=== PATIENT | female | born 1995 | race Hispanic/Latino ===

== ENCOUNTER 2017-02-03 08:58 | Emergency (ER) | payer SELFPAY ==
[~2017-02-03] VITALS: Ht 154.9 cm; Wt 79.0 kg
[~2017-02-03 08:58] MED LIST: ACCOLATE10 MG; CALNA OR; NO HOME MEDS; ULTRAM50 M1 PO
[2017-02-03] MEDS ORDERED: CIPROFLOXACN750 MG PO (09:22)
[2017-02-03] MEDS ORDERED: MOTRIN800 MG PO (09:22)
[2017-02-03] MEDS ORDERED: CORTISPORIN OTI10 M2 AU (09:22)
[2017-02-03 10:05] VITALS: BP 123/81
== END 2017-02-03 10:05 | disposition home or self-care (01) | DRG 156 ==
LOC: ED 08:58
DX: H60.93 Unspecified otitis externa, bilateral (principal); J45.909 Unspecified asthma, uncomplicated

== ENCOUNTER 2018-11-08 15:36 | Emergency (ER) | payer OTHER ==
[~2018-11-08] VITALS: Ht 154.9 cm; Wt 75.0 kg
[~2018-11-08 15:36] MED LIST changes: +CIPROFLOXACN750 MG PO; +CORTISPORIN OTI10 M2 AU; +MOTRIN800 MG PO
[2018-11-08] MEDS ORDERED: PROVENTIL HFA IN (16:06)
[2018-11-08] MEDS ORDERED: ZITHROMAX500 MG PO (16:14)
[2018-11-08] MEDS ORDERED: TESSALON PERLE100 MG PO (16:14)
[2018-11-08] MEDS ORDERED: PREDNISONE20 MG PO (16:14)
[2018-11-08 16:21] VITALS: BP 128/84
== END 2018-11-08 16:21 | disposition home or self-care (01) | DRG 153 ==
LOC: ED 15:36
DX: J32.9 Chronic sinusitis, unspecified (principal); J02.9 Acute pharyngitis, unspecified; R50.9 Fever, unspecified; R05 Cough; J45.909 Unspecified asthma, uncomplicated

== ENCOUNTER 2020-10-21 11:55 | Emergency (ER) | payer MEDICAID ==
[~2020-10-21] VITALS: Ht 154.9 cm; Wt 75.0 kg
[~2020-10-21 11:55] MED LIST changes: +PREDNISONE20 MG PO; +PROVENTIL HFA IN; +TESSALON PERLE100 MG PO; +ZITHROMAX500 MG PO
[2020-10-21 12:45] LABS: URINE BILIRUBIN - DIPSTICK NEGATIVE (NEGATIVE); URINE BLOOD DIPSTICK NEGATIVE (NEGATIVE); URINE CLARITY CLEAR; URINE COLOR YELLOW; URINE GLUCOSE - DIPSTICK NEGATIVE (NEGATIVE); URINE KETONE NEGATIVE (NEGATIVE); URINE LEUK ESTERASE NEGATIVE (Negative); URINE NITRITE - DIPSTICK NEGATIVE (Negative); URINE PH 5.5 (4.5-8.0); URINE PROTEIN - DIPSTICK NEGATIVE (NEG-TRACE); URINE SPECIFIC GRAVITY >=1.030; URINE UROBILINOGEN - DIPSTICK 0.2 E.U./dL (0.2)
[2020-10-21 14:12] VITALS: BP 124/83
== END 2020-10-21 14:12 | disposition home or self-care (01) ==
LOC: ED 11:55
DX: M79.642 Pain in left hand (principal); J45.909 Unspecified asthma, uncomplicated; X50.3XXA Overexertion from repetitive movements, initial encounter; Y92.63 Factory as the place of occurrence of the external cause; Y99.0 Civilian activity done for income or pay

== ENCOUNTER 2023-01-25 15:02 | Emergency (ER) | payer OTHER ==
[~2023-01-25] VITALS: Ht 154.9 cm; Wt 79.0 kg
[2023-01-25] MEDS ORDERED: NAPROXEN500 MG PO (19:02)
[2023-01-25] MEDS ORDERED: METHOCARBAMOL500 MG PO (19:02)
[2023-01-25 19:08] VITALS: BP 123/61
== END 2023-01-25 19:15 | disposition home or self-care (01) ==
LOC: ED 15:02
DX: S00.03XA Contusion of scalp, initial encounter (principal); S00.01XA Abrasion of scalp, initial encounter; J45.909 Unspecified asthma, uncomplicated; W10.9XXA Fall (on) (from) unspecified stairs and steps, initial encounter